=== PATIENT | female | born 1945 | race Caucasian/White ===

== ENCOUNTER 2018-01-16 08:49 | Day surgery (SDC) | payer OTHER ==
[~2018-01-16 08:49] MED LIST: CIPRO500 MG PO; COLACE100 MG PO; Cozaar PO; DILAUDID2 MG PO; FLAGYL500 MG PO; OMEPRAZOLE20 MG PO; PERCOCET 5/31 TABLET PO; TEKTURNA HCT PO; ZOFRAN4 MG PO
== END 2018-01-16 17:40 | disposition home or self-care (01) ==
LOC: CATH 08:49 → OPR 10:30 → CATH 12:00
PROC: 5A2204Z Restoration of Cardiac Rhythm, Single (ICD-10-PCS; principal; 2018-01-16)
DX: I48.1 Persistent atrial fibrillation (principal); I47.1 Supraventricular tachycardia; I10 Essential (primary) hypertension; K21.9 Gastro-esophageal reflux disease without esophagitis; I34.1 Nonrheumatic mitral (valve) prolapse; Z79.01 Long term (current) use of anticoagulants; Z90.49 Acquired absence of other specified parts of digestive tract; Z90.710 Acquired absence of both cervix and uterus
CPT/HCPCS: 93005